=== PATIENT | male | born 1950 | race Caucasian/White ===

== ENCOUNTER 2020-03-08 08:54 | Outpatient (CLI) | payer OTHER, SELFPAY ==
--- NOTE | ~2020-03-08 | XR_ITS ---
EXAMINATION: CT abdomen pelvis wo/w con, XR abdomen/kub 1V DATE: 03/08/2020 10:02 INDICATION: Gross hematuria TECHNIQUE: 1. Computed tomography (CT) of the abdomen and pelvis was performed without intravenous contrast. CT of the abdomen and pelvis was then performed with a total of 130 mL Omnipaque-350 intravenous contras t using a double-bolus technique for simultaneous opacification of the renal parenchyma and renal col lecting system. Automated exposure control and iterative reconstruction technique were employed. The dose-length product was 3021.46 mGy-cm. 2. A single view of the abdomen was obtained on 2 radiographs. COMPARISON: None FINDINGS: CT UROGRAM: Small calcified nodules in the right middle and left lower lobes along with calcified right hilar lym ph node and a few small splenic calcifications consistent with old granulomatous disease. Heart size is normal. Atherosclerotic coronary artery calcification. No pericardial or pleural effusion. Gallbla dder, spleen, pancreas and bilateral adrenal glands are normal. Mild scattered colonic diverticulosis without adjacent inflammatory change to suggest diverticulitis. No bowel obstruction. The appendix i s not visualized. No pericecal inflammatory change to suggest acute appendicitis. Fat-containing left inguinal hernia. No pathologically enlarged abdominal or pelvic lymphadenopathy.. There are bridging osteophytes at multiple levels in the lower thoracic spine, consistent with diffuse idiopathic skele mitch hyperostosis (DISH). There are couple nonobstructing stones in the left kidney measuring 1 mm the upper pole and approxima tely 2 mm at the lower pole. No right-sided urolithiasis. Kidneys and ureters are otherwise unremarka ble with no hydronephrosis. No urothelial irregularities identified along the bilateral renal collect ing systems and ureters. Prostatomegaly measuring 6.1 x 4.9 x 6.8 cm which impresses upon and distort s the posterior base of the otherwise unremarkable bladder. ABDOMEN RADIOGRAPH(S): The 2 mm stone at the lower pole of the left kidney is visible on the plain radiographs. The previous noted tiny stone at the upper pole of the left kidney is unable to be visualized on the plain radiog raph. Normal bowel gas pattern. IMPRESSION: 1. Couple small nonobstructing left renal stones. 2. Prostatomegaly. 3. Fat-containing left inguinal hernia. Reviewed, dictated and finalized at location A. IMPRESSION: 1. Couple small nonobstructing left renal stones. 2. Prostatomegaly. 3. Fat-containing left inguinal hernia.
[2020-03-08 09:43] LABS: Estimated Glomerular Filt Rate > 60
== END 2020-03-08 08:55 | disposition home or self-care (01) ==
PROVIDERS: PCP Emergency Medicine; Visit Provider Nurse Practitioner Adult Health
DX: R31.0 Gross hematuria (principal); N20.0 Calculus of kidney; N40.0 Benign prostatic hyperplasia without lower urinary tract symptoms; K40.90 Unilateral inguinal hernia, without obstruction or gangrene, not specified as recurrent
CPT/HCPCS: 74018; 74178; Q9967

== ENCOUNTER 2020-09-22 09:43 | Outpatient (CLI) | payer OTHER, MEDICARE, SELFPAY | END 2020-09-22 09:44 | disposition home or self-care (01) | LOC: ANHCOVIDVC 09:43 | PROVIDERS: PCP Emergency Medicine | DX: Z23 Encounter for immunization (principal) | CPT/HCPCS: 0001A; 91300 ==

== ENCOUNTER 2020-10-13 09:50 | Outpatient (CLI) | payer OTHER, MEDICARE, SELFPAY | END 2020-10-13 09:51 | disposition home or self-care (01) | LOC: ANHCOVIDVC 09:50 | PROVIDERS: PCP Emergency Medicine | DX: Z23 Encounter for immunization (principal) | CPT/HCPCS: 0002A; 91300 ==

== ENCOUNTER 2022-11-21 11:53 | Outpatient (CLI) | payer OTHER, SELFPAY ==
--- NOTE | ~2022-11-21 | XR_ITS ---
EXAMINATION: XR chest 2V Exam Date/Time: 11/21/2022 12:03 CDT HISTORY: R05.9 - Cough, PRODUCTIVE x 6MO Comparison: 04/18/2011. RESULT: Lines, tubes, and devices: None. Lungs and pleura: Low volumes with crowding. Diffuse reticulonodular opacities with cuffing. Cardiomediastinal silhouette: Stable. Other: No acute osseous or upper abdominal finding. IMPRESSION: Pulmonary opacities may represent bronchiolitis, as can be seen with atypical infection, asthma, aspi ration, and small airways disease. Reviewed, dictated and finalized at location K. IMPRESSION: Pulmonary opacities may represent bronchiolitis, as can be seen with atypical i nfection, asthma, aspiration, and small airways disease.
== END 2022-11-21 11:54 | disposition home or self-care (01) ==
PROVIDERS: PCP Family Medicine; Visit Provider Nurse Practitioner Family
DX: R05.9 Cough, unspecified (principal); R91.8 Other nonspecific abnormal finding of lung field
CPT/HCPCS: 71046

== ENCOUNTER → 2023-04-25 07:56 | Outpatient (CLI) | payer OTHER, SELFPAY ==
--- NOTE | ~2023-04-25 | MR_ITS ---
EXAMINATION: MR lumbar spine wo con DATE: 04/25/2023 08:29 INDICATION: Low back pain. Left leg pain. TECHNIQUE: Magnetic resonance imaging (MRI) of the lumbar spine was performed without intravenous con trast. Sequences included sagittal T2-weighted FSE, sagittal T2-weighted FS FSE, sagittal T1-weighted FSE, and axial T2-weighted FSE. COMPARISON: Lumbar spine MRI 10/14/2016 FINDINGS: There is 6 degrees dextrocurvature of thoracolumbar spine. There is a hemangioma in L3 vert ebral body. Vertebral body heights are normal. Intervertebral disc heights are normal. The distal spi nal cord signal intensity is normal. The conus medullaris is at L1. The following disc levels are spe cifically discussed: L1-L2: The disc is mildly bulging. There is mild bilateral facet joint osteoarthritis. There is mild bilateral neural foraminal stenosis. There is no central canal stenosis. L2-L3: The disc is bulging and has an annular fissure. There is mild bilateral facet joint osteoarthr itis. There is moderate right and mild left neural foraminal stenosis. There is mild central canal st enosis. L3-L4: The disc is bulging and has an annular fissure. There is moderate right and severe left facet joint osteoarthritis. There is moderate right and mild left neural foraminal stenosis. There is mild central canal stenosis. L4-L5: The disc is bulging. There is severe bilateral facet joint osteoarthritis. There is mild bilat eral neural foraminal stenosis. There is mild central canal stenosis. L5-S1: There is a right foraminal extrusion. There is severe bilateral facet joint osteoarthritis. Th ere is mild bilateral neural foraminal stenosis. There is no central canal stenosis. IMPRESSION: 1. Moderate lumbar spondylosis, mildly worsened from 10/14/2016. Reviewed, dictated and finalized at location A.
== END ==
PROVIDERS: PCP Family Medicine; Visit Provider Orthopaedic Surgery
DX: M54.16 Radiculopathy, lumbar region (principal); M43.06 Spondylolysis, lumbar region
CPT/HCPCS: 72148

== ENCOUNTER 2023-05-04 08:56 | Outpatient (CLI) | payer OTHER, SELFPAY ==
--- NOTE | 2023-05-04 09:04 | ECG_ITS ---
Measurements Intervals [place] Rate: 60 P: 25 RI: 191 QRS: -63 QRSD: 90 T: 20 QT: 393 QTc: 394 Interpretive Statements SINUS RHYTHM WITH OCCASIONAL VENTRICULAR PREMATURE COMPLEXES MARKED LEFT AXIS DEVIATION [QRS AXIS < -30] S1-S2-S3 PATTERN, CONSISTENT WITH PULMONARY DISEASE, RVH, OR NORMAL VARIANT NO PREVIOUS ECG AVAILABLE FOR COMPARISON Electronically Signed On 05-04-2023 13:34:47 CDT by Gm Knight MD
[2023-05-04 09:31] LABS: Basophils Percent Auto 0.4 % (0.2-1.2); Eosinophils Absolute Auto 0.2 K/mm3 (0-0.3); Eosinophils Percent Auto 2.2 % (0-4.4); Hematocrit 52.3 % (42.0-52.0); Hemoglobin 16.6 g/dL (14.0-18.0); Immature Granulocyte Absolute 0.04 K/mm3 (0.00-0.031); Immature Granulocyte Percent A 0.6 % (0-0.5); Lymphocytes Absolute Auto 1.43 K/mm3 (0.9-3.2); Lymphocytes Percent Auto 20.7 % (18.3-44.2); Mean Corpuscular HGB Conc 31.7 g/dl (32-36); Mean Corpuscular Hemoglobin 30.3 pg (26-34); Mean Corpuscular Volume 95.6 fl (80-100); Mean Platelet Volume 10.9 fl (7.4-10.4); Monocytes Absolute Auto 0.4 K/mm3 (0.1-0.6); Monocytes Percent Auto 6.1 % (2.6-8.5); Neutrophils Absolute Auto 4.9 K/mm3 (1.3-6.7); Platelet Count Result 178 k/mm3 (150-375); Red Blood Count 5.47 M/mm3 (4.6-6.20); Red Cell Distribution Width 13.5 % (11.5-14.5); White Blood Count 6.9 K/mm3 (4.5-10.0)
[2023-05-04 09:36] LABS: Anion Gap 9 mmol/L (8-16); Blood Urea Nitrogen 19 mg/dL (9-20); Calcium 9.4 mg/dL (8.4-10.2); Carbon Dioxide 26 mmol/L (22-30); Chloride 103 mmol/L (98-107); Estimated Glomerular Filt Rate > 60; Glucose 188 mg/dL (65-110); INR 0.9; Partial Thromboplastin Time 28.5 SECONDS (22.3-36.8); Potassium 4.3 mmol/L (3.4-5.0); Prothrombin Time 12.9 Seconds (11.1-14.7); Sodium 138 mmol/L (137-145)
== END 2023-05-04 08:57 | disposition home or self-care (01) ==
LOC: ANHSURGERY 09:00
PROVIDERS: PCP Family Medicine; Visit Provider Urology
DX: Z01.818 Encounter for other preprocedural examination (principal); N40.0 Benign prostatic hyperplasia without lower urinary tract symptoms; E11.9 Type 2 diabetes mellitus without complications; I44.4 Left anterior fascicular block; R93.1 Abnormal findings on diagnostic imaging of heart and coronary circulation
CPT/HCPCS: 36415; 80048; 85025; 85610; 85730; 87077; 87086; 87186; 93005

== ENCOUNTER 2023-05-11 10:25 | Outpatient (CLI) | payer OTHER, SELFPAY | END 2023-05-11 10:26 | disposition home or self-care (01) | PROVIDERS: PCP Family Medicine; Visit Provider Urology | DX: R82.79 Other abnormal findings on microbiological examination of urine (principal); N40.0 Benign prostatic hyperplasia without lower urinary tract symptoms | CPT/HCPCS: 87086 ==

== ENCOUNTER 2023-05-15 01:04 | Day surgery (SDC) | payer OTHER, SELFPAY ==
[2023-05-03 08:57] VITALS: BMI 42.0
--- NOTE | 2023-05-03 09:22 | PC.NURSE ---
PRE-OP INSTRUCTIONS, PLEASE READ CAREFULLY Report to the Outpatient Waiting Room, entrance under the green pavilion located off [facility], at time _1000_ on date _05/15/23_. Planned Procedure Time: _1200_. Time changes happen often and if your time is changed the preop area will call you the afternoon before. - You and your visitor will be asked to self-screen and do not enter if you have any COVID symptoms. - A mask is optional within the hospital at this time. Patients may have clear liquids (water, carbonated beverages, clear teas, apple juice) until 3 hours prior to surgery (0900 AM) with a maximum of 20 ounces. - No food from midnight until time of surgery Take the following medications with a SIP of water the morning of surgery: _DULOXETINE, PREGABALIN & NASAL SPRAY, TRAMADOL IF NEEDED_ DO NOT STOP ANY OF YOUR OTHER PRESCRIPTION MEDICATIONS PRIOR TO SURGERY ?EXCEPT THE FOLLOWING Medications to discontinue per ANESTHESIA - _VITAMINS/SUPPLEMENTS 3 DAYS PRIOR TO SURGERY, Date to take last dose 05/11/23_ Please no make-up, nail gibraltarian, hairspray, perfume, deodorant, or body powder the day of surgery. No jewelry (including any body piercings) or valuables the day of surgery, leave them at home. Please take a shower or bath the night before, or the morning of, surgery with an antibacterial soap. Wear comfortable, loose fitting clothing. - Jewelry must be removed prior to entering the operating room. Rings and piercings that are not removed may be cut off. - The hospital will not accept responsibility for valuables. - Please leave all valuables, including medications, at home the day of surgery. If you are going home after surgery, a licensed special education bus driver must drive you home. - NO public transportation without another adult if you receive anesthesia. - We recommend that an adult stay with you for 24 hours following discharge. - We also recommend that you do not drive, make important decision, drink alcoholic beverages, or take any drugs that were not prescribed by your health care provider for at least 24 hours after your discharge time. Follow any additional instructions given to you from your surgeon. If you or anyone in your household have experienced Covid symptoms in the past week, please notify your surgeon or the nurse liaison at the phone number below for possible testing. Telephone instructions given to _PATIENT & SPOUSE_and asked if any additional questions and then verbalized understanding. Patient advised to call surgeon office or pre surgery nurse liaison [phone] if any additional questions.
[2023-05-15] VITALS (12 sets, daily range): BP systolic 106–156; BP diastolic 54–83; PULSE 54–73; RESP 14–20; TEMP 36.2–36.6; O2SAT 91–100
[2023-05-15 10:35] LABS: Glucose Point of Care 136 mg/dl (65-105)
--- NOTE | 2023-05-15 11:06 | PM.IMHP ---
H&P: HPI History of Present Illness Date/Time: 05/15/23 11:06 Chief Complaint: BPH Narrative: 72-year-old male with obstructive symptoms. His urocuff was borderline. Regardless he has decided to proceed with transurethral resection of his prostate to take this out of the equation. The risks and complications were discussed. He wishes to proceed. Review of Systems Review of Systems: All systems reviewed & are unremarkable except as noted in HPI and below PMFSH Past Medical History Medical History At low risk for fall BMI greater than 40 BPH (benign prostatic hyperplasia) Cervicalgia Diabetes type 2, controlled Diabetes type 2, uncontrolled Diabetic neuropathy Essential (primary) hypertension Gastro-esophageal reflux disease without esophagitis Hyperglycemia, unspecified Nasal congestion Other allergic rhinitis Other dorsalgia Other fatigue Other hyperlipidemia Tension type headache, unspecified Surgical History Surgical History History of ear, nose, and throat (ENT) surgery Family History Family History Father Heart disease Mother Diabetes mellitus Obesity Dementia Hyperlipemia Sibling Heart disease Hyperlipemia Hypertension Social History Social History (Updated 04/30/23 @ 12:07 by Kimberly Curiel CONE EXAMINER) Smoking status: Current every day smoker Tobacco type: smokeless tobacco Smokeless tobacco user: chewing tobacco Second hand tobacco smoke exposure: No Alcohol intake: current Drinks per week: 2 Alcohol use details: 2-3 MONTH Substance use: never Substance use type: does not use Lack of Transportation: No Lack of Food: Never True Current Housing: I Have Housing Concerned About Future Housing: No Difficulty Paying Gas/Electric Bills: No Difficulty Paying for Meds: No Currently Unemployed: No Education: High School Diploma/GED Difficulty w/ Childcare or Family Care: No Living arrangements: with family Occupation/Education: retired Additional occupation/education comments: [employer] Gender identity (if verbalized by the patient): Male Spiritual care concerns: No Meds Home Medications and Allergies Home Medications Medication Instructions Recorded Confirmed Type finasteride 5 mg tablet 5 mg PO DAILY #90 tabs 11/10/21 05/15/23 Rx lancets (Microlet Lancet) 11/10/21 05/03/23 History fluticasone furoate 50 1 inh inhalation DAILY #30 ea 04/27/22 05/15/23 Rx mcg/actuation blister powder for inhalation atorvastatin 10 mg tablet 10 mg PO DAILY #90 tabs 07/28/22 05/15/23 Rx pregabalin 150 mg capsule 150 mg PO BID #60 caps 12/04/22 05/15/23 Rx glipizide 5 mg tablet 5 mg PO DAILY #90 tabs 12/10/22 05/15/23 Rx lisinopril 40 mg tablet 40 mg PO DAILY #90 tabs 12/22/22 05/15/23 Rx sumatriptan 5 mg/actuation nasal 5 mg intranasal Q2-4H PRN migraine 02/06/23 05/15/23 Rx spray headache #6 ea tramadol 50 mg tablet 50 mg PO Q6H PRN pain #90 tabs 03/11/23 05/15/23 Rx tamsulosin 0.4 mg capsule 0.4 mg PO DAILY #90 caps 03/15/23 05/15/23 Rx blood sugar diagnostic (Contour #100 ea 04/03/23 05/03/23 Rx Next Test Strips) cholecalciferol (vitamin D3) 125 125 mcg PO DAILY 05/03/23 05/15/23 History mcg (5,000 unit) tablet cyanocobalamin (vitamin B-12) 10,000 mcg PO DAILY 05/03/23 05/15/23 History 5,000 mcg capsule duloxetine 30 mg capsule,delayed 30 mg PO QAM 05/03/23 05/15/23 History release sprinkle ipratropium bromide 42 mcg (0.06 2 spray intranasal BID PRN 05/03/23 05/15/23 History %) nasal spray Congestion vit C 250 mg-E 90 mg-zinc 40 1 tablet PO DAILY 05/03/23 05/15/23 History mg-copper 1 [id number] chew tablet (PreserVision AREDS-2) empagliflozin 25 mg tablet 25 mg PO QAM #90 tabs 05/14/23 05/15/23 Rx (Jardiance
--- NOTE | 2023-05-15 11:08 | WPDHPUPDATE1 ---
History and Physical Update Update Date/Time: 05/15/23 11:08 History and Physical has been reviewed, including an updated exam of the patient. There are NO changes in the patient's condition. Risks, benefits, and alternatives have been discussed and questions answered. Patient agrees to proceed with procedure. Proceed with transurethral resection of prostate
--- NOTE | 2023-05-15 11:51 | WPDANESEPPF ---
Anes - Initial Pre Proc Eval Procedure: Operation Date: 05/15/23 12:00 Proposed Procedures p Trans Urethral Resection Prostate - Demetrio Orona MD Date/Time: 05/15/23 11:51 Surgeon: Demetrio Orona MD Pre Op Diagnosis: BPH Patient Data Age: 72 Gender: M Height: 1.7 m Weight: 123.4 kg Last Vital Signs Temp 36.4 C L 05/15/23 10:07 Pulse 56 L 05/15/23 10:07 Resp 18 05/15/23 10:07 BP 134/67 05/15/23 10:07 Pulse Ox 97 05/15/23 10:07 O2 Del Method Room Air 05/15/23 10:07 Allergies Allergy/AdvReac Type Severity Reaction Status Date / Time gabapentin Allergy Intermediate itching Verified 05/15/23 10:52 Home Medications Medication Instructions Recorded Confirmed Type finasteride 5 mg tablet 5 mg PO DAILY #90 tabs 11/10/21 05/15/23 Rx lancets (Microlet Lancet) 11/10/21 05/03/23 History fluticasone furoate 50 1 inh inhalation DAILY #30 ea 04/27/22 05/15/23 Rx mcg/actuation blister powder for inhalation atorvastatin 10 mg tablet 10 mg PO DAILY #90 tabs 07/28/22 05/15/23 Rx pregabalin 150 mg capsule 150 mg PO BID #60 caps 12/04/22 05/15/23 Rx glipizide 5 mg tablet 5 mg PO DAILY #90 tabs 12/10/22 05/15/23 Rx lisinopril 40 mg tablet 40 mg PO DAILY #90 tabs 12/22/22 05/15/23 Rx sumatriptan 5 mg/actuation nasal 5 mg intranasal Q2-4H PRN migraine 02/06/23 05/15/23 Rx spray headache #6 ea tramadol 50 mg tablet 50 mg PO Q6H PRN pain #90 tabs 03/11/23 05/15/23 Rx tamsulosin 0.4 mg capsule 0.4 mg PO DAILY #90 caps 03/15/23 05/15/23 Rx blood sugar diagnostic (Contour #100 ea 04/03/23 05/03/23 Rx Next Test Strips) cholecalciferol (vitamin D3) 125 125 mcg PO DAILY 05/03/23 05/15/23 History mcg (5,000 unit) tablet cyanocobalamin (vitamin B-12) 10,000 mcg PO DAILY 05/03/23 05/15/23 History 5,000 mcg capsule duloxetine 30 mg capsule,delayed 30 mg PO QAM 05/03/23 05/15/23 History release sprinkle ipratropium bromide 42 mcg (0.06 2 spray intranasal BID PRN 05/03/23 05/15/23 History %) nasal spray Congestion vit C 250 mg-E 90 mg-zinc 40 1 tablet PO DAILY 05/03/23 05/15/23 History mg-copper 1 [id number] chew tablet (PreserVision AREDS-2) empagliflozin 25 mg tablet 25 mg PO QAM #90 tabs 05/14/23 05/15/23 Rx (Jardiance) Laboratory Tests 05/15/23 10:27 POC Capillary Glucose 136 H mg/dl (65-105) Patient hx anesthesia problems: none Family hx anesthesia problems: none Results Review: All pre-operative results and documents have been reviewed as part of the pre-operative evaluation. [facility] Past Medical History Medical History At low risk for fall BMI greater than 40 BPH (benign prostatic hyperplasia) Cervicalgia Diabetes type 2, controlled Diabetes type 2, uncontrolled Diabetic neuropathy Essential (primary) hypertension Gastro-esophageal reflux disease without esophagitis Hyperglycemia, unspecified Nasal congestion Other allergic rhinitis Other dorsalgia Other fatigue Other hyperlipidemia Tension type headache, unspecified Surgical History Surgical History History of ear, nose, and throat (ENT) surgery Family History Family History Father Heart disease Mother Diabetes mellitus Obesity Dementia Hyperlipemia Sibling Heart disease Hyperlipemia Hypertension Social History Social History Smoking status: Current every day smoker Tobacco type: smokeless tobacco Smokeless tobacco user: chewing tobacco Second hand tobacco smoke exposure: No Alcohol intake: current Drinks per week: 2 Alcohol use details: 2-3 MONTH Substance use: never Substance use type: does not use Lack of Transportation: No Lack of Food: Never True Current Housing: I Have
[2023-05-15] MEDS: ceFAZolin 3 GM/D5W 100 ML 100 ML IVPB (12:01)
[2023-05-15] MEDS: LIDOCAINE HCL 2% GEL UROJET 10 ML PKG MUCOUS MEM (12:31)
--- NOTE | 2023-05-15 13:23 | P.OP_ITS ---
Procedure Note - Detailed Date of Procedure 05/15/23 Pre-op Diagnosis BPH Post-op Diagnosis Same Procedure Performed Transurethral resection of prostate Surgeon Demetrio Orona MD Anesthesia General Description of Procedure Patient is taken to the operative suite correctly identified. Once anesthesia was obtained was placed in dorsal lithotomy position and prepped draped usual sterile fashion. Twenty-four Panamanian resectoscope sheath was inserted the bladder. He has lateral lobe hypertrophy but also lobes protruding into the bladder. The ureteral orifices were visualized at all times. Resection was carried out from the bladder neck to the verumontanum circumferentially. Hemostasis was achieved using electrocautery. Chips were sent for analysis. 2% viscous lidocaine was inserted into the urethra. A [address] was placed with 20 cc in the balloon. This was connected to continuous bladder irrigation and patient is taken recovery stable condition. This completes dictation on this patient please send a copy of this op note to my office Estimated Blood Loss 50 Drains Yes Packing No Pathology Yes Complications No immediate complications Condition Stable Disposition PACU
[2023-05-15] MEDS: LACTATED RINGERS 1,000 ML 30 ML IV CONT ×2 (13:30)
[2023-05-15 13:48] LABS: Glucose Point of Care 134 mg/dl (65-105)
--- NOTE | 2023-05-15 15:13 | ADMGEN ---
This patient, Edu Dias, was admitted to 2 Medical Room 259-01. Patient/family oriented to hospital policies and general routines including ID bracelet, bed and alarms, visiting hours, pain management, procedures, bathroom and other care routines, personal items, smoking policy, room service/diet, and visiting hours. Information on how to activate the Rapid Response Team has been discussed. Patient/Family are encouraged to report perceived risks to care and to ask questions if they do not understand what they are told or what they should do.
[2023-05-15] MEDS: PREGABALIN (*CRX) 75 MG CAPSULE 150 MG PO (17:10)
[2023-05-15] MEDS: HYOSCYAMINE SULFATE 0.125 MG TABLET SUBLINGUAL (17:49)
[2023-05-15] MEDS: ceFAZolin 1 GM/NS 50 ML 1 GM/50 ML BAG IVPB (20:42)
[2023-05-16 00:45] VITALS: BP 115/50; PULSE 77; RESP 18; TEMP 36.4; O2SAT 95
[2023-05-16] MEDS: ceFAZolin 1 GM/NS 50 ML 1 GM/50 ML BAG IVPB (04:33)
[2023-05-16] MEDS: HYDROcodone/acetaminophen (*CRX) 5-325 MG TABLET 1 TAB PO ×2 (04:39→09:08)
[2023-05-16 04:44] VITALS: BP 95/50; PULSE 52; RESP 20; TEMP 36.4; O2SAT 94
[2023-05-16 06:07] LABS: Hematocrit 47.6 % (42.0-52.0); Hemoglobin 15.4 g/dL (14.0-18.0)
[2023-05-16 06:39] LABS: Anion Gap 10 mmol/L (8-16); Blood Urea Nitrogen 23 mg/dL (9-20); Calcium 8.9 mg/dL (8.4-10.2); Carbon Dioxide 23 mmol/L (22-30); Chloride 101 mmol/L (98-107); Estimated CRCL calculation 68 ml/min; Estimated Glomerular Filt Rate > 60; Glucose 150 mg/dL (65-110); Potassium 4.7 mmol/L (3.4-5.0); Sodium 134 mmol/L (137-145)
[2023-05-16 08:00] VITALS: PULSE 50; RESP 16; O2SAT 97
--- NOTE | 2023-05-16 08:19 | WPDUROPN2 ---
Progress Note: A&P Assessment and Plan (1) BPH (benign prostatic hyperplasia): Qualifiers: Lower urinary tract symptom presence: symptoms absent Qualified Code(s): N40.0 - Benign prostatic hyperplasia without lower urinary tract symptoms Code(s): N40.0 - Benign prostatic hyperplasia without lower urinary tract symptoms Status: Acute Assessment and Plan: Doing well overall. Hold CBI. Lab blood pressure recheck this morning. If does well later this afternoon will discharge home with Chamberlain catheter and have it removed next Sunday or Sunday. Our nurse practitioner will re-evaluate patient this afternoon. Subjective Subjective Date/Time Seen: 05/16/23 08:19 Post Op day: 1 (Transurethral section of prostate) Principal diagnosis: BPH Interval history: No major complaints this morning. Urine clear with minimal CBI. Blood pressure a little low this morning. Review of Systems Review of Systems: All systems reviewed & are unremarkable except as noted in HPI and below Exam Const: General: cooperative and comfortable Resp: Effort & Inspection: normal respiratory effort Cardio: Rate: regular rate Rhythm: regular rhythm GI: Inspection: normal to inspection GI Palp: Yes Soft to palpation Objective Data Vital Signs Vital Signs: Vital Signs - 24 hr 05/15/23 10:07 05/15/23 13:30 05/15/23 13:45 Temperature 36.4 C L 36.6 C Pulse Rate 56 L 73 66 Respiratory Rate 18 14 14 Blood Pressure 134/67 108/57 L 122/64 Pulse Oximetry 97 96 100 Oxygen Delivery Room Air Simple Face Mask Simple Face Mask Oxygen Flow Rate 6 6 05/15/23 14:00 05/15/23 14:10 05/15/23 14:15 Temperature Pulse Rate 64 61 Respiratory Rate 14 14 Blood Pressure 127/63 107/80 Pulse Oximetry 100 95 Oxygen Delivery Simple Face Mask Room Air Room Air Oxygen Flow Rate 6 05/15/23 14:30 05/15/23 14:45 05/15/23 15:15 Temperature 36.6 C Pulse Rate 59 L 55 L 55 L Respiratory Rate 14 14 18 Blood Pressure 106/83 109/67 122/64 Pulse Oximetry 99 97 100 Oxygen Delivery Room Air Room Air Oxygen Flow Rate 05/15/23 15:30 05/15/23 16:00 05/15/23 17:00 Temperature 36.6 C 36.5 C 36.5 C Pulse Rate 54 L 55 L 56 L Respiratory Rate 18 18 17 Blood Pressure 155/73 H 156/83 H 152/78 H Pulse Oximetry 91 95 96 Oxygen Delivery Oxygen Flow Rate 05/15/23 20:45 05/16/23 00:45 05/15/23 20:30 Temperature 36.2 C L 36.4 C Pulse Rate 58 L 77 Respiratory Rate 20 18 Blood Pressure 118/54 L 115/50 L Pulse Oximetry 95 95 Oxygen Delivery Room Air Oxygen Flow Rate 05/16/23 04:44 Temperature 36.4 C Pulse Rate 52 L Respiratory Rate 20 Blood Pressure 95/50 L Pulse Oximetry 94 Oxygen Delivery Oxygen Flow Rate Intake/Output Intake/Output: Intake & Output 05/13/23 05/14/23 05/15/23 05/16/23 23:59 23:59 23:59 23:59 Intake Total 3010 440 Output Total 2900 950 Balance 110 -510 Meds/Results Medications: Active Medications Generic Name Dose Route Start Last Admin Trade Name Freq PRN Reason Stop Dose Admin Hydrocodone Bitart/Acetaminophen 1 tab 05/15/23 15:00 05/16/23 04:39 Hydrocodone/Acetaminophen (*Crx) 5-325 Mg Tablet PO 1 tab Q4H PRN Administration Pain Rated 1-6 Atorvastatin Calcium 10 mg 05/16/23 09:00 Atorvastatin 10 Mg Tablet PO DAILY [facility] Cephalexin HCl 500 mg 05/16/23 09:00 Cephalexin 500 Mg Capsule PO QID [facility] Docusate Sodium 100 mg 05/15/23 17:00 05/15/23 17:10 Docusate Sodium 100 Mg Capsule PO Not Given BID [facility] Empagliflozin 25 mg 05/16/23 09:00 Empagliflozin 25 Mg Tablet PO QAM [facility] Fluticasone Propionate 1 puff 05/16/23 09:00 Fluticasone Prop 44 Mcg (*Sp) 10.6 Gm INHALATION DAILY [facility] Glipizide 5 mg 05/16/23 06:30 Glipizide 5 Mg Tablet PO DAILY@0630 [facility] Hyoscyamine 0.125 mg 05/15/23 15:00 05/15/23 17:49 Hyoscyamine Sulfate 0.125 Mg Tablet SUBLINGUAL 0.125 mg Q
[2023-05-16 08:28] LABS: Glucose Point of Care 167 mg/dl (65-105)
--- NOTE | 2023-05-16 08:59 | WPDANESPN ---
Anes - Prog Note Post-Op Date/Time: 05/16/23 08:59 Cardiovascular status: normal Respiratory status: normal Airway patency: baseline Mental status: baseline Post-Op hydration status: normal Vital Signs: Last Vital Signs Temp 97.6 F 05/16/23 04:44 Pulse 52 L 05/16/23 04:44 Resp 20 05/16/23 04:44 BP 95/50 L 05/16/23 04:44 Pulse Ox 94 05/16/23 04:44 O2 Del Method Room Air 05/15/23 20:30 O2 Flow Rate 6 05/15/23 14:00 Pain Score (VAS): 0/10 I/O: Intake & Output 05/15/23 05/16/23 05/16/23 23:59 07:59 15:59 Intake Total 410 440 Output Total 950 Balance 410 -510 Laboratory Tests 05/16/23 06:00 05/16/23 06:00 05/15/23 05/15/23 05/16/23 10:27 13:45 06:00 Hgb 15.4 Hct 47.6 Sodium 134 L Potassium 4.7 Chloride 101 Carbon Dioxide 23 Anion Gap 10 BUN 23 H Creatinine 1.10 Estim Creat Clear Calc 68 Estimated GFR > 60 Glucose 150 H POC Capillary Glucose 136 H 134 H Calcium 8.9 05/16/23 08:21 Hgb Hct Sodium Potassium Chloride Carbon Dioxide Anion Gap BUN Creatinine Estim Creat Clear Calc Estimated GFR Glucose POC Capillary Glucose 167 H Calcium Post-procedural complaints: none Patient Feedback: Patient satisfied with anesthetic care.
[2023-05-16] MEDS: glipiZIDE 5 MG TABLET PO (09:05)
[2023-05-16] MEDS: CEPHALEXIN 500 MG CAPSULE PO ×2 (09:05→12:36)
[2023-05-16] MEDS: ATORVASTATIN 10 MG TABLET PO (09:05)
[2023-05-16] MEDS: EMPAGLIFLOZIN 25 MG TABLET PO (09:06)
[2023-05-16] MEDS: DOCUSATE SODIUM 100 MG CAPSULE PO (09:06)
[2023-05-16] MEDS: PREGABALIN (*CRX) 75 MG CAPSULE 150 MG PO (09:06)
[2023-05-16] MEDS: lisinopriL 20 MG TABLET 40 MG PO (09:06)
[2023-05-16 09:51] VITALS: BP 112/53; PULSE 50; RESP 16; TEMP 36.7; O2SAT 97
[2023-05-16 12:12] LABS: Glucose Point of Care 188 mg/dl (65-105)
[2023-05-16 13:08] VITALS: BP 112/47; PULSE 48; RESP 16; TEMP 36.6; O2SAT 97
== END 2023-05-16 15:23 | disposition home or self-care (01) ==
LOC: ANHSURGERY 10:03 → ANH2MED 15:04
PROVIDERS: PCP Family Medicine; Visit Provider Urology
PROC: 0VT08ZZ Resection of Prostate, Via Natural or Artificial Opening Endoscopic (ICD-10-PCS; CPT 52601; principal; 2023-05-15 12:00)
DX: N40.0 Benign prostatic hyperplasia without lower urinary tract symptoms (principal); N41.1 Chronic prostatitis; R82.79 Other abnormal findings on microbiological examination of urine; E11.40 Type 2 diabetes mellitus with diabetic neuropathy, unspecified; I10 Essential (primary) hypertension; K21.9 Gastro-esophageal reflux disease without esophagitis; E78.49 Other hyperlipidemia; Z82.49 Family history of ischemic heart disease and other diseases of the circulatory system; F17.220 Nicotine dependence, chewing tobacco, uncomplicated; Z79.84 Long term (current) use of oral hypoglycemic drugs; Z79.891 Long term (current) use of opiate analgesic; E66.01 Morbid (severe) obesity due to excess calories; Z68.41 Body mass index [BMI] 40.0-44.9, adult
CPT/HCPCS: 52601; 36415; 80048; 82948; 85014; 85018; 85025; 85610; 85730; 87077; 87086; 87186; 88305; 88309; 93005; A9270; J0690; J1100; J2371; J2405; J2704; J7120

== ENCOUNTER 2023-11-19 14:11 | Outpatient (CLI) | payer OTHER, SELFPAY ==
--- NOTE | 2023-11-22 08:01 | WPDHOLTEREM ---
Holter/Event Monitor Holter/Event Monitor Date of procedure: 11/19/23 Holter/Event Procedure: 48 Hr Holter Monitor Indications: Palpitations Conclusion: 1. 48 hour holter monitor on 11/19/23. 2. Underlying rhythm is sinus rhythm. HR range 46-111 bpm; average HR 61 bpm. HR at 46 bpm was at 07:24. 3. There are 1,830 premature supraventricular complexes and 158 supraventricular trigeminy. No supraventricular tachycardia. 4. There are 2,081 premature ventricular complexes, 2 ventricular couplets and 88 ventricular trigeminy. No ventricular tachycardia. 5. No sinoatrial or atrioventricular blocks. No significant pauses greater than 2 seconds. 6. No symptoms available for correlation.
== END 2023-11-19 14:12 | disposition home or self-care (01) ==
PROVIDERS: PCP Family Medicine; Visit Provider Nurse Practitioner Family
DX: R00.2 Palpitations (principal)
CPT/HCPCS: 93225; 93226

== ENCOUNTER 2023-11-21 14:44 | Outpatient (CLI) | payer OTHER, SELFPAY ==
--- NOTE | 2023-11-21 14:52 | ECG_ITS ---
SEE SCANNED COPY FOR CONFIRMED REPORT MTDD
== END 2023-11-21 14:45 | disposition home or self-care (01) ==
LOC: ANHCARD 14:46
PROVIDERS: PCP Family Medicine; Visit Provider Nurse Practitioner Family
DX: R00.2 Palpitations (principal); R00.1 Bradycardia, unspecified; R94.31 Abnormal electrocardiogram [ECG] [EKG]
CPT/HCPCS: 93005

== ENCOUNTER 2023-12-31 08:53 | Outpatient (CLI) | payer OTHER, SELFPAY ==
--- NOTE | 2024-01-13 19:02 | WPDSLEEPSTUD ---
Sleep Study Date of Study: 12/31/23 Ordering Provider: Srini Daniels DO Interpreting Physician: Jeanette Baumann MD Sleep Study Type: Split Polysomnogram Height: 1.68 m Weight: 120.202 kg Body Mass Index: 42.7 Neck Circumference (inches): 19 [place]: 4 Reason for Sleep Study Multiple nighttime awakenings, thirsty at night Sleep History Edu Dias is a 73-year-old man with poor quality sleep. He wakes up multiple times during the night feeling thirsty, goes to sit in the recliner and may be able to return to sleep. He estimates getting 3 and half to 4 hours of sleep at night.. He never awakens from sleep feeling short of breath. He occasionally wakes at night with heartburn, belching or coughing.??He frequently snores loudly enough that others complain. He occasionally has trouble sleeping when he has a cold. He never wakes up gasping for breath during the night. He occasionally has breathing problems at night. He occasionally sweats excessively at night. He occasionally notices his heart pounding or beating irregularly during the night. He occasionally falls asleep during the day. He never falls asleep involuntarily, never falls asleep while driving. He never experiences loss of muscle tone with strong emotion. He never has daytime difficulty at work due to excessive sleepiness. He never feels paralyzed on waking or falling asleep. He never experiences vivid dreams upon waking or falling asleep. He never feels afraid of going to sleep. He rarely has nightmares. He occasionally recalls his dreams. He occasionally has thoughts racing through his mind. He rarely feels sad or depressed. He rarely feels anxiety. He never notices parts of his body jerk. He never kicks during the night. He frequently feels crawling or aching feelings in his legs. He frequently feels leg pain at night. He never has morning jaw pain, never grinds his teeth at night. He occasionally feels bothered by pain during the day, occasionally awakened by pain during the night. He occasionally wakes up feeling stiff in the morning, and he occasionally wakes feeling sore or achy. He occasionally awakens with pain in his neck, spine, or joints. Normal bedtime is between 10:30 p.m. and 11:00 p.m., falling asleep within 5 minutes, waking 2-3 times at night. When he wakes at night, he goes to the bathroom to urinate and he gets a drink of water. He may stay awake between 15 minutes and 1 hour when he awakens at night. He typically gets between 5:30 a.m. and 8:00 a.m.. He estimates getting 6 hours of sleep most nights. On weekends, his bedtime is also to 10 30-11 p.m., wake time is later, 8:30 a.m. to 9:30 a.m.. He sometimes takes naps in the day, and he may feel refreshed after a 10-15 minute nap. He is usually drowsy for 1 hour after waking. He feels better later in the day compared to mornings. Habits:??Tobacco: never smoker Caffeine: 2 cups of coffee in the morning, 1 cup of decaf in the evening. Alcohol: 2 or 3 beers per week Recreational substances: none PMFSH Past Medical History Medical History At low risk for fall BMI 40.0-44.9, adult BMI greater than 40 BPH (benign prostatic hyperplasia) Cervicalgia Cough Diabetes type 2, controlled Diabetes type 2, uncontrolled Diabetic neuropathy Dizziness Essential (primary) hypertension Gastro-esophageal reflux disease without esophagitis Hip pain Hx of benign neoplasm of prostate Hyperglycemia, unspecified Nasal congestion Other allergic rhinitis Other dorsalgia Other fatigue Other hyperlipidemia Palpable abnormality of thyroid gland Tension type headache, unspecified Surgical History Surgical History History of ear, nose, and throat (ENT) surgery Family History Family History Father Heart disease Mother Cecilia
[2024-01-13 19:39] VITALS: BMI 42.7
== END 2024-01-01 07:23 | disposition home or self-care (01) ==
LOC: ANHCSM 08:54
PROVIDERS: PCP Family Medicine; Visit Provider Internal Medicine Cardiovascular Disease
DX: G47.33 Obstructive sleep apnea (adult) (pediatric) (principal); G47.10 Hypersomnia, unspecified; E11.40 Type 2 diabetes mellitus with diabetic neuropathy, unspecified; I10 Essential (primary) hypertension; E78.49 Other hyperlipidemia; F17.220 Nicotine dependence, chewing tobacco, uncomplicated
CPT/HCPCS: 95811